=== PATIENT | female | born 1970 | race Caucasian/White ===

== ENCOUNTER 2019-10-05 14:09 | Emergency (ER) | payer OTHER, SELFPAY ==
--- NOTE | ~2019-10-05 | XR_ITS ---
EXAMINATION: XR chest 1V portable EXAM DATE: 10/05/2019 14:43 INDICATION: Shortness of breath and cough. TECHNIQUE: Portable AP frontal chest x-ray was obtained. Comparison is made to prior examination from 07/04/2018. FINDINGS: The lungs are clear. There are no pleural effusions. The cardiomediastinal silhouette is within normal limits. There is no pneumothorax suspected. The bones and soft tissues are unremarkab le. IMPRESSION: Unremarkable chest x-ray exam. Reviewed, dictated and finalized at location A.
[2019-10-05 14:15] VITALS: BP 128/87; PULSE 93; RESP 18; TEMP 36.9; O2SAT 100
[2019-10-05 14:20] VITALS: PULSE 95
[2019-10-05 14:33] LABS: Basophils Absolute Auto 0.1 K/mm3 (0.0-0.1); Basophils Percent Auto 0.5 % (0.2-1.2); Eosinophils Absolute Auto 0.1 K/mm3 (0-0.3); Eosinophils Percent Auto 0.5 % (0-4.4); Hemoglobin 15.4 g/dL (12.0-15.0); Immature Granulocyte Absolute 0.04 K/mm3 (0.00-0.031); Immature Granulocyte Percent A 0.3 % (0-0.5); Lymphocytes Percent Auto 31.7 % (18.3-44.2); Mean Corpuscular HGB Conc 33.5 g/dl (32-36); Mean Corpuscular Hemoglobin 31.4 pg (26-34); Mean Corpuscular Volume 93.9 fl (80-100); Mean Platelet Volume 10.9 fl (7.4-10.4); Monocytes Absolute Auto 0.8 K/mm3 (0.1-0.6); Monocytes Percent Auto 6.7 % (2.6-8.5); Neutrophils Absolute Auto 7.6 K/mm3 (1.3-6.7); Neutrophils Percent Auto 60.3 % (45.5-73.1); Platelet Count Result 421 k/mm3 (150-375); White Blood Count 12.6 K/mm3 (4.5-10.0)
[2019-10-05 14:54] LABS: Blood Urea Nitrogen 21 mg/dL (7-17); Calcium 9.7 mg/dL (8.4-10.2); Carbon Dioxide 30 mmol/L (22-30); Chloride 98 mmol/L (98-107); Estimated CRCL calculation 65 ml/min; Estimated Glomerular Filt Rate > 60; Glucose 98 mg/dL (65-105); Potassium 3.1 mmol/L (3.4-5.0); Sodium 137 mmol/L (137-145)
--- NOTE | 2019-10-05 14:59 | ED.SOB ---
HPI - SOB/Dyspnea General Chief Complaint: Shortness of Breath/Dyspnea Stated Complaint: fever/sob Time Seen by Provider: 10/05/19 14:28 History of Present Illness HPI Narrative: Patient is a 49-year-old female who presents ER with cold symptoms. Patient reports subjective fevers and chills over the last 2 to 3 days. She reports myalgias as well as abdominal discomfort with nausea. She reports shortness of breath but cannot actually tell me what makes her short of breath. She continues to smoke several cigarettes a day. No loss of consciousness or dizziness. 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 Related Data Home Medications Medication Instructions Recorded Confirmed cetirizine mg 10/05/19 ergocalciferol (vitamin D2) 10/05/19 10/05/19 hydrochlorothiazide 10/05/19 hydrocodone-acetaminophen 10/05/19 levothyroxine 10/05/19 ranitidine HCl 10/05/19 sertraline 50 mg PO DAILY 10/05/19 Allergies Allergy/AdvReac Type Severity Reaction Status Date / Time Penicillins Allergy Severe HIVES Verified 10/05/19 14:23 Review of Systems Review of Systems: All systems reviewed & are unremarkable except as noted in HPI and below Constitutional: Constitutional: Reports chills, Reports fatigue, Reports fever(s) and Reports weakness ENT: Denies nasal congestion and Reports sore throat Cardiovascular: Cardiovascular: Denies chest pain and Denies radiating jaw, neck or arm pain Respiratory: Respiratory: Denies chest congestion, Reports cough, Reports dyspnea and Denies wheezing Gastrointestinal: Gastrointestinal: Reports abdominal pain, Denies diarrhea, Reports nausea and Denies vomiting Genitourinary: Genitourinary: Denies nocturia and Denies dysuria Musculoskeletal: Musculoskeletal: Reports myalgias PMFSH Past Medical History Medical History (Updated 10/05/19 @ 17:37 by Sascha Redman MD) GERD (gastroesophageal reflux disease) Hypertension Hypothyroidism Surgical History Surgical History (Updated 10/05/19 @ 17:34 by Sascha Redman MD) No pertinent past surgical history Social History Social History (Updated 10/05/19 @ 17:34 by Sascha Redman MD) Smoking status: Light tobacco smoker Gender identity (if verbalized by the patient): Female Exam Narrative: Exam Narrative: GENERAL: Uncomfortable-appearing, well-nourished, and in no acute distress. HEAD: Normocephalic, atraumatic. ENT: Mucous membranes moist. CHEST: Clear to auscultation. No respiratory distress. HEART: Regular rate and rhythm. No murmur heard. Normal peripheral pulses. ABDOMEN: Soft, mild epigastric discomfort, no rebound or guarding, nondistended. EXTREMITIES: Normal range of motion. Normal strength, able to perform squats in the room. SKIN: Warm, dry, no rash. NEURO: Alert and oriented x3. PSYCH: Normal mood and affect. Course Course Emergency Course: Patient was able to perform jumping jacks and squats without hypoxia however that she was fatigued. Unremarkable lab work with exception of mild leukocytosis which is nonspecific. No pneumonia on chest x-ray. Patient without wheezing on lung exam. Liver function tests as well as lipase negative. Patient received some fentanyl for diffuse discomfort. Influenza negative. Patient is pulled her own IV is ready to leave. She has tolerated oral fluids. She is also been hydrated intravenously. Vital Signs Vital signs: Vital Signs Temperature 98.4 F 10/05/19 14:15 Pulse Rate 93 10/05/19 14:15 Respiratory Rate 18 10/05/19 14:15 Blood Pressure 128/87 10/05/19 14:15 Pulse Oximetry 100 10/05/19 14:15 Temperature 98.4 F 10/05/19 14:15 Pulse Rate 87 10/05/19 17:27 Respiratory Rate 16 10/05/19 17:27 Blood Pressure 101/64 10/05/19 17:27 Pulse Oximetry 97 10/05/19 17:27 MDM - SOB/Dyspnea Lab Data Result
[2019-10-05] MEDS: SODIUM CHLORIDE 0.9% IV 1,000 ML 999 ML IV CONT (15:51)
[2019-10-05 16:35] VITALS: BP 126/74; PULSE 70; RESP 22; O2SAT 99
[2019-10-05 16:35] LABS: Alanine Aminotransferase 15 U/L (4-35); Albumin Level 4.8 g/dL (3.5-5.1); Alkaline Phosphatase 89 U/L (38-126); Aspartate Amino Transferase 25 U/L (14-36); Bilirubin,Total 0.4 mg/dL (0.2-1.3); Lipase 214 U/L (23-300)
--- NOTE | 2019-10-05 16:36 | PC.NURSE ---
pt unable to provide ua at this time pt refused straight cath option. will try again shortly
[2019-10-05 17:27] VITALS: BP 101/64; PULSE 87; RESP 16; O2SAT 97
== END 2019-10-05 17:56 | disposition home or self-care (01) ==
PROVIDERS: Emergency Provider Emergency Medicine; PCP Nurse Practitioner
DX: B34.9 Viral infection, unspecified (principal); K21.9 Gastro-esophageal reflux disease without esophagitis; I10 Essential (primary) hypertension; E03.9 Hypothyroidism, unspecified
CPT/HCPCS: 36415; 71045; 80048; 80076; 83690; 85025; 87804; 96361; 96374; 99284; J3010; J7030

== ENCOUNTER 2022-03-01 08:05 | Emergency (ER) | payer OTHER, SELFPAY ==
[2022-03-01 08:13] VITALS: BP 137/101; PULSE 95; RESP 16; TEMP 37.3; O2SAT 100
[2022-03-01 08:14] VITALS: BP 137/101; PULSE 95; RESP 95; TEMP 37.3; O2SAT 100
--- NOTE | 2022-03-01 08:14 | ED.SKABFB ---
HPI - Skin/Abscess/Foreign Bdy General Chief complaint: Skin/Abscess/Foreign Body Stated complaint: Rash on Neck Time Seen by Provider: 03/01/22 08:15 Source: patient, RN notes reviewed and old records reviewed Mode of arrival: ambulatory Limitations: no limitations History of Present Illness HPI narrative: 52-year-old female presents to the [facility] with an inch she less than 1 cm area to anterior neck. No other symptoms. Has been scratching. Needs a work note. No surrounding erythema. Denies any fevers, upper respiratory infections. Related Data Home Medications Medication Instructions Recorded Confirmed cetirizine 10 mg tablet 10 mg PO DAILY 10/05/19 03/01/22 ergocalciferol (vitamin D2) 1,250 1,250 mcg PO WEEKLY 10/05/19 03/01/22 mcg (50,000 unit) capsule hydrochlorothiazide 25 mg tablet 25 mg PO DAILY 10/05/19 03/01/22 levothyroxine 50 mcg tablet 50 mcg PO DAILY 10/05/19 03/01/22 sertraline 50 mg tablet 50 mg PO DAILY 10/05/19 03/01/22 doxepin 10 mg capsule 10 mg PO DAILY 03/01/22 03/01/22 famotidine 20 mg tablet 20 mg PO DAILY 03/01/22 03/01/22 omeprazole 40 mg capsule,delayed 40 mg PO DAILY 03/01/22 03/01/22 release topiramate 200 mg tablet 200 mg PO DAILY 03/01/22 03/01/22 venlafaxine 37.5 mg 37.5 mg PO DAILY 03/01/22 03/01/22 capsule,extended release 24 hr Allergies Allergy/AdvReac Type Severity Reaction Status Date / Time Penicillins Allergy Severe HIVES Verified 03/01/22 08:13 Review of Systems Review of Systems: All systems reviewed & are unremarkable except as noted in HPI and below Constitutional: Constitutional: Reports no additional constitutional complaints, Denies chills and Denies fever(s) Eyes: Eyes: Reports no additional eye complaints ENT: Reports system reviewed and no additional complaints, except as documented Cardiovascular: Cardiovascular: Reports no additional cardiovascular complaints Respiratory: Respiratory: Reports no additional respiratory complaints Gastrointestinal: Gastrointestinal: Reports no additional gastrointestinal complaints Musculoskeletal: Musculoskeletal: Reports no additional musculoskeletal complaints Integumentary/Breasts: Skin/Breast: Reports as per HPI Neurologic: Reports system reviewed and no additional complaints, except as documented Psychiatric: Psychiatric: Reports no additional psychiatric complaints Allergic/Immunologic: Allergic/Immunologic: Reports no additional allergic/immunologic complaints PMFSH Past Medical History Medical History GERD (gastroesophageal reflux disease) Hypertension Hypothyroidism Surgical History Surgical History No pertinent past surgical history Social History Social History Smoking status: Light tobacco smoker Gender identity (if verbalized by the patient): Female Comments At the time of my signature, I reviewed and agree with the nursing past medical, surgical, social, and family history. There is no relevant family history pertinent to the patient complaint. Exam Const: General: healthy appearing, no acute distress and alert Nutritional Appearance: well nourished Orientation/consciousness: patient oriented x3 Limitations: no limitations HENMT: Head: normal to inspection Ears: external ears normal, TM's normal bilaterally and EAC's normal General nose exam: Normal external nose present Face and sinus: normal facial exam Mouth: Yes Normal oral and palatal mucosa present, Yes lip normal and Yes moist mucous membranes Eyes: General: appearance normal, both eyes and all related structures Pupils: Equal, round and reactive pupils present Neck: Neck: normal visual inspection, no lymphadenopathy and no meningeal signs Chest: Chest palpation & inspection: normal inspection of the chest Resp: Effort & Inspection: normal respirato
== END 2022-03-01 08:29 | disposition home or self-care (01) ==
PROVIDERS: Emergency Provider Nurse Practitioner; PCP Internal Medicine
DX: L50.9 Urticaria, unspecified (principal); S10.96XA Insect bite of unspecified part of neck, initial encounter; W57.XXXA Bitten or stung by nonvenomous insect and other nonvenomous arthropods, initial encounter; K21.9 Gastro-esophageal reflux disease without esophagitis; I10 Essential (primary) hypertension; E03.9 Hypothyroidism, unspecified; F17.200 Nicotine dependence, unspecified, uncomplicated
CPT/HCPCS: 99211; G0463

== ENCOUNTER 2022-04-06 01:28 | Day surgery (SDC) | payer OTHER, SELFPAY ==
[2022-03-23 09:50] VITALS: BMI 28.5
[2022-04-06 06:50] VITALS: BP 127/95; PULSE 95; RESP 18; TEMP 36.2; O2SAT 100; BMI 28.5
[2022-04-06] MEDS: LACTATED RINGERS 1,000 ML 150 ML IV CONT (07:00)
--- NOTE | 2022-04-06 07:27 | P.PNAN_ITS ---
Anes - Initial Pre Proc Eval Procedure: Operation Date: 04/06/22 08:00 Proposed Procedures p Screening Colonoscopy - Yonatan Connor MD Date/Time: 04/06/22 07:27 Surgeon: Yonatan Connor MD Pre Op Diagnosis: neoplasm screening Patient Data Age: 52 Gender: F Height: 1.6 m Weight: 73.2 kg Last Vital Signs Temp 36.2 C L 04/06/22 06:50 Pulse 95 04/06/22 06:50 Resp 18 04/06/22 06:50 BP 127/95 H 04/06/22 06:50 Pulse Ox 100 04/06/22 06:50 O2 Del Method Room Air 04/06/22 06:50 Allergies Allergy/AdvReac Type Severity Reaction Status Date / Time Penicillins Allergy Severe HIVES Verified 03/23/22 09:51 Home Medications Medication Instructions Recorded Confirmed Type ergocalciferol (vitamin D2) 1,250 1,250 mcg PO WEEKLY 10/05/19 03/23/22 History mcg (50,000 unit) capsule levothyroxine 50 mcg tablet 50 mcg PO DAILY 10/05/19 03/23/22 History doxepin 10 mg capsule 20 mg PO HS 03/01/22 03/23/22 History famotidine 20 mg tablet 20 mg PO DAILY 03/01/22 03/23/22 History omeprazole 40 mg capsule,delayed 40 mg PO DAILY 03/01/22 03/23/22 History release topiramate 200 mg tablet 200 mg PO DAILY 03/01/22 03/23/22 History venlafaxine 37.5 mg 37.5 mg PO DAILY 03/01/22 03/23/22 History capsule,extended release 24 hr acetaminophen 325 mg tablet 650 mg PO Q4H PRN Pain 03/23/22 03/23/22 History (Tylenol) docusate sodium 100 mg capsule 250 mg PO BID 03/23/22 03/23/22 History phentermine 37.5 mg capsule 37.5 mg PO DAILY 03/23/22 03/23/22 History Patient hx anesthesia problems: none Family hx anesthesia problems: none Results Review: All pre-operative results and documents have been reviewed as part of the pre- operative evaluation. [facility] Past Medical History Medical History GERD (gastroesophageal reflux disease) Hypertension Hypothyroidism Surgical History Surgical History No pertinent past surgical history Social History Social History Years smoked: 38 Smoking status: Current every day smoker Tobacco type: cigarettes and e-cigarettes/vaping Alcohol intake: former Substance use type: does not use Living arrangements: with family Gender identity (if verbalized by the patient): Female Spiritual care concerns: No Anes - Eval Final PreProcedure Day of Procedure 04/06/22 07:27 Patient weight: overweight Heart: regular rate and rhythm Lungs: clear to auscultation Airway: Mallampati scale class II Neurological: alert and oriented Last oral intake: >/= 8 hours ASA classification: III Emergent: no Anesthetic plan: proceed Anesthesia type and monitoring: general GIVS and standard monitoring Results Review: All pre-operative results and documents have been reviewed as part of the pre- operative evaluation. Informed Consent: The patient's anesthetic plan and its attendant risks and benefits were discussed with the patient/family/POA. Questions were solicited and answers provided to the satisfaction of the patient/family/POA.
--- NOTE | 2022-04-06 07:42 | PM.HPGS ---
History of Present Illness History of Present Illness Consent: Risks, benefits, and alternatives have been discussed and questions answered. Patient agrees to proceed with procedure. Chief complaint: neoplasm screening Narrative: Gloria Garcia is a 52 year old female here for first screening colonoscopy Review of Systems Constitutional: Constitutional: Denies headache(s) and Denies weakness Eyes: Eyes: Denies blurry vision ENT: Reports Normal hearing present, Denies headache(s) and Denies neck pain Cardiovascular: Cardiovascular: Denies chest pain and Denies dyspnea Respiratory: Respiratory: Denies dyspnea Gastrointestinal: Gastrointestinal: Reports no additional gastrointestinal complaints Genitourinary: Genitourinary: Denies dysuria Musculoskeletal: Musculoskeletal: Denies neck pain Integumentary/Breasts: Skin/Breast: Denies dry skin Neurologic: Reports Normal hearing present, Denies headache(s) and Denies weakness Psychiatric: Psychiatric: Denies anxiety Endocrine: Endocrine: Denies change in body appearance Hematologic/Lymphatic: Hematologic/Lymphatic: Denies easy bleeding Allergic/Immunologic: Allergic/Immunologic: Denies urticaria PMFSH Past Medical History Medical History (Updated 04/06/22 @ 07:43 by Yonatan Connor MD) Colon cancer screening GERD (gastroesophageal reflux disease) Hypertension Hypothyroidism Surgical History Surgical History No pertinent past surgical history Social History Social History Years smoked: 38 Smoking status: Current every day smoker Tobacco type: cigarettes and e-cigarettes/vaping Alcohol intake: former Substance use type: does not use Living arrangements: with family Gender identity (if verbalized by the patient): Female Spiritual care concerns: No Meds Home Medications and Allergies Home Medications Medication Instructions Recorded Confirmed Type ergocalciferol (vitamin D2) 1,250 1,250 mcg PO WEEKLY 10/05/19 03/23/22 History mcg (50,000 unit) capsule levothyroxine 50 mcg tablet 50 mcg PO DAILY 10/05/19 03/23/22 History doxepin 10 mg capsule 20 mg PO HS 03/01/22 03/23/22 History famotidine 20 mg tablet 20 mg PO DAILY 03/01/22 03/23/22 History omeprazole 40 mg capsule,delayed 40 mg PO DAILY 03/01/22 03/23/22 History release topiramate 200 mg tablet 200 mg PO DAILY 03/01/22 03/23/22 History venlafaxine 37.5 mg 37.5 mg PO DAILY 03/01/22 03/23/22 History capsule,extended release 24 hr acetaminophen 325 mg tablet 650 mg PO Q4H PRN Pain 03/23/22 03/23/22 History (Tylenol) docusate sodium 100 mg capsule 250 mg PO BID 03/23/22 03/23/22 History phentermine 37.5 mg capsule 37.5 mg PO DAILY 03/23/22 03/23/22 History Allergies Allergy/AdvReac Type Severity Reaction Status Date / Time Penicillins Allergy Severe HIVES Verified 03/23/22 09:51 Vital Signs Vital Signs - 24 hr 04/06/22 06:50 Temperature 97.2 F L Pulse Rate 95 Respiratory Rate 18 Blood Pressure 127/95 H Pulse Oximetry 100 Oxygen Delivery Room Air Exam Const: General: comfortable and no acute distress HENMT: Face/Nose/Sinus: Normal nares present Eyes: General: appearance normal, both eyes and all related structures Neck: Neck: no JVD Resp: Auscultation: clear to auscultation bilaterally Cardio: Rate: regular rate Rhythm: regular rhythm GI: Inspection: non-distended GI Palp: Yes Soft to palpation Skin: General skin exam: normal color Neuro: General: gait normal Speech: normal speech Extrem: General: normal to inspection Psych: Mental Status: mental status grossly normal Assessment and Plan Assessment and plan (1) Colon cancer screening: Code(s): Z12.11 - Encounter for screening for malignant neoplasm of colon Status: Acute Assessment and Plan: colonoscopy
[2022-04-06 08:05] VITALS: BP 108/77; PULSE 82; RESP 20; O2SAT 100
[2022-04-06 08:15] VITALS: BP 111/85; PULSE 80; RESP 20; O2SAT 100
[2022-04-06 08:25] VITALS: BP 119/60; PULSE 77; RESP 22; O2SAT 100
== END 2022-04-06 08:31 | disposition home or self-care (01) ==
PROVIDERS: PCP Internal Medicine; Visit Provider Internal Medicine Gastroenterology
PROC: 0DJD8ZZ Inspection of Lower Intestinal Tract, Via Natural or Artificial Opening Endoscopic (ICD-10-PCS; CPT 45378; principal; 2022-04-06 08:00)
DX: Z12.11 Encounter for screening for malignant neoplasm of colon (principal); D12.3 Benign neoplasm of transverse colon; K57.30 Diverticulosis of large intestine without perforation or abscess without bleeding; K21.9 Gastro-esophageal reflux disease without esophagitis; I10 Essential (primary) hypertension; E03.9 Hypothyroidism, unspecified; F17.210 Nicotine dependence, cigarettes, uncomplicated
CPT/HCPCS: 45380; 88305; J2704; J7120

== ENCOUNTER 2022-05-11 18:37 | Emergency (ER) | payer OTHER, SELFPAY ==
--- NOTE | ~2022-05-11 | XR_ITS ---
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 HAD COVID MID APRIL. Comparison: 10/05/2019. RESULT: Lines, tubes, and devices: None. Lungs and pleura: Clear. Cardiomediastinal silhouette: Stable. Other: No acute osseous or upper abdominal finding. IMPRESSION: No acute cardiopulmonary process. Reviewed, dictated and finalized at location K. WORKER
--- NOTE | 2022-05-11 18:39 | ECG_ITS ---
Measurements Intervals [place] Rate: 83 P: 4 DC: 143 QRS: -2 QRSD: 86 T: 29 QT: 353 QTc: 415 Interpretive Statements SINUS RHYTHM LOW QRS VOLTAGE IN PRECORDIAL LEADS NONSPECIFIC T-WAVE ABNORMALITY- INFERIOR LEADS BASELINE WANDER- V5-V6 BORDERLINE ECG NO PREVIOUS ECG AVAILABLE FOR COMPARISON Electronically Signed On 05-11-2022 20:07:49 ECHO VASC TECH by Keenan Ferrell D.O.
[2022-05-11 19:06] LABS: Basophils Percent Auto 0.5 % (0.2-1.2); Eosinophils Absolute Auto 0.1 K/mm3 (0-0.3); Eosinophils Percent Auto 1.2 % (0-4.4); Hematocrit 38.4 % (37.0-47.0); Hemoglobin 12.9 g/dL (12.0-15.0); Immature Granulocyte Absolute 0.02 K/mm3 (0.00-0.031); Immature Granulocyte Percent A 0.3 % (0-0.5); Lymphocytes Absolute Auto 1.95 K/mm3 (0.9-3.2); Lymphocytes Percent Auto 33.1 % (18.3-44.2); Mean Corpuscular HGB Conc 33.6 g/dl (32-36); Mean Corpuscular Hemoglobin 32.2 pg (26-34); Mean Corpuscular Volume 95.8 fl (80-100); Mean Platelet Volume 9.4 fl (7.4-10.4); Monocytes Absolute Auto 0.4 K/mm3 (0.1-0.6); Monocytes Percent Auto 5.9 % (2.6-8.5); Neutrophils Absolute Auto 3.5 K/mm3 (1.3-6.7); Platelet Count Result 351 k/mm3 (150-375); Red Blood Count 4.01 M/mm3 (4.2-5.4); Red Cell Distribution Width 12.6 % (11.5-14.5); White Blood Count 5.9 K/mm3 (4.5-10.0)
[2022-05-11 19:17] LABS: Alanine Aminotransferase 38 U/L (6-35); Albumin Level 4.4 g/dL (3.5-5.1); Alkaline Phosphatase 84 U/L (38-126); Anion Gap 10 mmol/L (8-16); Aspartate Amino Transferase 34 U/L (14-36); Bilirubin,Total 0.5 mg/dL (0.2-1.3); Blood Urea Nitrogen 13 mg/dL (7-17); Calcium 8.6 mg/dL (8.4-10.2); Carbon Dioxide 21 mmol/L (22-30); Chloride 109 mmol/L (98-107); Estimated Glomerular Filt Rate > 60; Glucose 112 mg/dL (65-110); Potassium 3.3 mmol/L (3.4-5.0); Sodium 140 mmol/L (137-145)
[2022-05-11 20:44] VITALS: BP 130/91; PULSE 83; RESP 14; TEMP 37.1; O2SAT 100
[2022-05-11 21:30] LABS: Influenza A QL RT-PCR Positive (Negative); Influenza B QL RT-PCR Negative (Negative); SARS-CoV-2 RNA PCR Negative
--- NOTE | 2022-05-11 23:16 | ED.GENADULT ---
HPI - General Adult General Chief complaint: Shortness of Breath/Dyspnea Stated complaint: non-productive cough - covid positive in April Time Seen by Provider: 05/11/22 23:01 History of Present Illness HPI narrative: 52-year-old female presented to the emergency department for evaluation of body aches and cough. Patient states in mid April she was diagnosed with COVID. Patient reported that she had follow-up with her primary care physician because symptoms have returned. At that time patient was started on clindamycin. Patient reports that the clindamycin did not help. Patient did test positive for influenza A today. Patient is also complaining of sores around her nares. Patient reports she has had this issue previously. Patient has had follow-up with ENT and was prescribed Bactroban. Patient has been taking the Bactroban as directed. Related Data Home Medications Medication Instructions Recorded Confirmed ergocalciferol (vitamin D2) 1,250 1,250 mcg PO WEEKLY 10/05/19 03/23/22 mcg (50,000 unit) capsule levothyroxine 50 mcg tablet 50 mcg PO DAILY 10/05/19 03/23/22 doxepin 10 mg capsule 20 mg PO HS 03/01/22 03/23/22 famotidine 20 mg tablet 20 mg PO DAILY 03/01/22 03/23/22 omeprazole 40 mg capsule,delayed 40 mg PO DAILY 03/01/22 03/23/22 release topiramate 200 mg tablet 200 mg PO DAILY 03/01/22 03/23/22 venlafaxine 37.5 mg 37.5 mg PO DAILY 03/01/22 03/23/22 capsule,extended release 24 hr acetaminophen 325 mg tablet 650 mg PO Q4H PRN Pain 03/23/22 03/23/22 (Tylenol) docusate sodium 100 mg capsule 250 mg PO BID 03/23/22 03/23/22 phentermine 37.5 mg capsule 37.5 mg PO DAILY 03/23/22 03/23/22 Allergies Allergy/AdvReac Type Severity Reaction Status Date / Time Penicillins Allergy Severe HIVES Verified 05/11/22 18:39 Review of Systems Review of Systems: CONSTITUTIONAL: See HPI EYES: Denies visual changes, redness, or discharge. ENT: Denies rhinorrhea, congestion, sore throat, or otalgia. CARDIOVASCULAR: Denies chest pain, palpitations, or edema. RESPIRATORY: See HPI GASTROINTESTINAL: Denies abdominal pain, nausea, vomiting, or diarrhea. GENITOURINARY: Denies dysuria or hematuria. SKIN: Denies rash or itching. MUSCULOSKELETAL: Denies back pain, joint pain, or myalgia. NEUROLOGIC: Denies headache, numbness, or weakness. [facility] Past Medical History Medical History (Updated 05/12/22 @ 00:01 by Hawk Danima) Colon cancer screening GERD (gastroesophageal reflux disease) Hypertension Hypothyroidism Surgical History Surgical History No pertinent past surgical history Social History Social History Years smoked: 38 Smoking status: Current every day smoker Tobacco type: cigarettes and e-cigarettes/vaping Alcohol intake: former Substance use type: does not use Gender identity (if verbalized by the patient): Female Spiritual care concerns: No Course Vital Signs Vital signs: Vital Signs Temperature 98.7 F 05/11/22 20:44 Pulse Rate 83 05/11/22 20:44 Respiratory Rate 14 05/11/22 20:44 Blood Pressure 130/91 H 05/11/22 20:44 Pulse Oximetry 100 05/11/22 20:44 Oxygen Delivery Room Air 05/11/22 20:44 Temperature 98.7 F 05/11/22 20:44 Pulse Rate 74 05/11/22 23:30 Respiratory Rate 18 05/11/22 23:30 Blood Pressure 130/91 H 05/11/22 20:44 Pulse Oximetry 100 05/11/22 20:44 Oxygen Delivery Room Air 05/11/22 20:44 Medical Decision Making Vital Signs Vital Signs: Vital Signs Temperature 98.7 F 05/11/22 20:44 Pulse Rate 83 05/11/22 20:44 Respiratory Rate 14 05/11/22 20:44 Blood Pressure 130/91 H 05/11/22 20:44 Pulse Oximetry 100 05/11/22 20:44 Oxygen Delivery Room Air 05/11/22 20:44 Temperature 98.7 F 05/11/22 20:44 Pulse Rate 74 05/11/22 23:30 Respiratory Rate 18 05/11/22 23:30 Blood Pressure 130/91 H
[2022-05-11 23:20] VITALS: PULSE 80; RESP 18
[2022-05-11] MEDS: ALBUTEROL SULFATE NEB 2.5 MG/3 ML INH 5 MG INHALATION (23:23)
[2022-05-11 23:30] VITALS: PULSE 74; RESP 18
== END 2022-05-11 23:42 | disposition home or self-care (01) ==
LOC: ANHED 23:33
PROVIDERS: Emergency Medicine; Emergency Provider Emergency Medicine; PCP Internal Medicine
DX: J10.1 Influenza due to other identified influenza virus with other respiratory manifestations (principal); Z20.822 Contact with and (suspected) exposure to COVID-19; F17.210 Nicotine dependence, cigarettes, uncomplicated; K21.9 Gastro-esophageal reflux disease without esophagitis; I10 Essential (primary) hypertension; E03.9 Hypothyroidism, unspecified
CPT/HCPCS: 36415; 71046; 80053; 85025; 87636; 93005; 94640; 99283

== ENCOUNTER 2022-06-29 07:50 | Outpatient (CLI) | payer OTHER, SELFPAY ==
--- NOTE | ~2022-06-29 | MM_ITS ---
EXAMINATION: MM screening juany BI w tari HISTORY: Screening mammogram TECHNIQUE: Craniocaudal and mediolateral oblique 3-D tomosynthesis images were obtained and synthetic 2-D images were generated. CAD analysis was submitted and interpreted. COMPARISON: 07/15/2014 right diagnostic mammogram and limited right breast ultrasound examination 10/01/2013 bilateral screening mammogram BREAST PARENCHYMAL COMPOSITION: The breasts are almost entirely fatty. FINDINGS: There is no evidence of suspicious mass, calcification, or architectural distortion to sugg est malignancy in either breast. There has been no suspicious interval change. IMPRESSION: 1. No mammographic evidence of malignancy. 2. Recommend routine screening mammography in one year. BI-RADS Category 1: Negative Reviewed, dictated and finalized at location A. F OPHTHALMIC TECHNICIAN
== END 2022-06-29 07:51 | disposition home or self-care (01) ==
PROVIDERS: PCP Internal Medicine; Visit Provider Obstetrics & Gynecology
DX: Z12.31 Encounter for screening mammogram for malignant neoplasm of breast (principal)
CPT/HCPCS: 77063; 77067

== ENCOUNTER 2022-08-08 07:43 | Outpatient (CLI) | payer OTHER, SELFPAY ==
--- NOTE | ~2022-08-08 | CT_ITS ---
EXAMINATION: CT soft tissue neck w con DATE: 08/08/2022 08:24 INDICATION: Sialoadenitis. TECHNIQUE: Computed tomography (CT) of the neck was performed with 75 mL Omnipaque-350 intravenous co ntrast. Automated exposure control and iterative reconstruction technique were employed. The dose-zurdo gth product was 511.60 mGy-cm. COMPARISON: Neck CT 01/30/2015 FINDINGS: There are changes of left hemithyroidectomy. There is 11 mm nodule right thyroid lobe, like ly not clinically significant. There are no pathologically enlarged lymph nodes. The parotid glands, submandibular glands, and sublingual glands are normal. No sialolith. There are multiple broken teeth on the left. IMPRESSION: 1. Normal major salivary glands. Reviewed, dictated and finalized at location A. [employer]
[2022-08-08 08:16] LABS: Estimated Glomerular Filt Rate > 60
== END 2022-08-08 07:44 | disposition home or self-care (01) ==
LOC: ANHIMG 07:46
PROVIDERS: PCP Internal Medicine; Visit Provider Otolaryngology
DX: K11.20 Sialoadenitis, unspecified (principal); H92.03 Otalgia, bilateral
CPT/HCPCS: 70491; Q9967

== ENCOUNTER 2023-03-15 16:17 | Outpatient (CLI) | payer OTHER, SELFPAY ==
--- NOTE | ~2023-03-15 | CT_ITS ---
EXAMINATION: CT abdomen pelvis wo con DATE: 03/15/2023 16:28 INDICATION: Left abdominal pain TECHNIQUE: Computed tomography (CT) of the abdomen and pelvis was performed without intravenous contr ast. The dose-length product (DLP) was 866.35 mGy-cm. Automated exposure control and iterative recons truction technique were employed. COMPARISON: None FINDINGS: The lung bases are clear. The heart size is normal. The liver, spleen, pancreas, gallbladde r, and adrenal glands are normal. There are two nonobstructing stones of the right kidney which measu re up to 3 mm. There are two nonobstructing stones of the left kidney which measure up to [address] ones are identified in the ureters or bladder. No hydronephrosis or hydroureter. No pathologically en larged abdominal or pelvic lymph nodes are identified. No free intraperitoneal gas or evidence of bow el obstruction. IMPRESSION: 1. No CT correlate for the patient's symptoms. 2. Bilateral nonobstructing nephrolithiasis. Reviewed, dictated and finalized at location F.
== END 2023-03-15 16:18 | disposition home or self-care (01) ==
LOC: ANHIMG 16:19
PROVIDERS: PCP Internal Medicine; Visit Provider Internal Medicine
DX: N20.0 Calculus of kidney (principal)
CPT/HCPCS: 74176

== ENCOUNTER 2023-03-17 20:56 | Emergency (ER) | payer OTHER, SELFPAY ==
--- NOTE | ~2023-03-17 | XR_ITS ---
EXAMINATION: XR chest 2V DATE: 03/17/2023 21:34 INDICATION: Chest and abdominal pain TECHNIQUE: PA and lateral views of the chest are obtained. COMPARISON: 05/11/2022 FINDINGS: The lungs are free of acute opacities. No pleural effusion or pneumothorax. The cardiomedia stinal silhouette is normal. There is mild thoracic spondylosis. Surgical clips are noted in the semaj on of the left thyroid. IMPRESSION: 1. No acute cardiopulmonary abnormality. Reviewed, dictated and finalized at location F.
--- NOTE | ~2023-03-17 | CT_ITS ---
EXAMINATION: CTA chest PE abdomen pel DATE: 03/18/2023 04:17 INDICATION: Chest pain. Abdominal pain. TECHNIQUE: Computed tomography angiography (CTA) of the chest was performed with 100 mL Omnipaque-350 intravenous contrast timed to evaluate the pulmonary arteries. Coronal maximum intensity projection 3D-reconstructions were created by the technologist. Computed tomography (CT) of the abdomen and pelv is was performed with intravenous contrast. Automated exposure control and iterative reconstruction t echnique were employed. The dose-length product was 1659.77 mGy-cm. COMPARISON: CT abdomen and pelvis 03/15/2023 FINDINGS: CTA chest: The lung volumes are small. There is mild emphysema. There is mild atelectasis bilaterally . No pleural effusion. There are changes of left hemithyroidectomy. The heart size is normal. No kathrin cardial effusion. There is no pulmonary embolus. There is mild thoracic spondylosis. CT abdomen and pelvis: There is diffuse hepatic steatosis. The gallbladder, spleen, pancreas, and adr enal glands are normal. There are 1 mm and 3 mm stones in right kidney. There is a 2 mm stone in left kidney. There are no dilated loops of bowel. The appendix is normal. There are no pathologically enl arged lymph nodes. There is no free intraperitoneal fluid. There is mild lumbar spondylosis. IMPRESSION: 1. No pulmonary embolus. 2. Mild emphysema. 3. Diffuse hepatic steatosis. 4. Bilateral nonobstructing kidney stones. Reviewed, dictated and finalized at location E.
--- NOTE | 2023-03-17 20:57 | ECG_ITS ---
Measurements Intervals [place] Rate: 65 P: 5 NC: 141 QRS: 5 QRSD: 86 T: 41 QT: 382 QTc: 399 Interpretive Statements SINUS RHYTHM LOW QRS VOLTAGE IN PRECORDIAL LEADS CANNOT RULE OUT SEPTAL INFARCT, AGE INDETERMINATE ABNORMAL ECG COMPARED TO ECG 05/11/2022 18:52:29 NO SIGNIFICANT CHANGES Electronically Signed On 03-17-2023 21:09:55 CDT by Keenan Ferrell D.O.
[2023-03-17 21:00] VITALS: BP 103/61; PULSE 77; RESP 19; TEMP 36.8; O2SAT 99
[2023-03-17] MEDS: ASPIRIN 81 MG CHEWABLE TABLET 324 MG PO (21:01)
[2023-03-17 21:16] LABS: Basophils Absolute Auto 0.1 K/mm3 (0.0-0.1); Basophils Percent Auto 0.5 % (0.2-1.2); Eosinophils Absolute Auto 0.2 K/mm3 (0-0.3); Eosinophils Percent Auto 1.6 % (0-4.4); Hematocrit 34.7 % (37.0-47.0); Hemoglobin 11.3 g/dL (12.0-15.0); Immature Granulocyte Absolute 0.02 K/mm3 (0.00-0.031); Immature Granulocyte Percent A 0.2 % (0-0.5); Lymphocytes Absolute Auto 3.89 K/mm3 (0.9-3.2); Lymphocytes Percent Auto 41.3 % (18.3-44.2); Mean Corpuscular HGB Conc 32.6 g/dl (32-36); Mean Corpuscular Hemoglobin 32.5 pg (26-34); Mean Corpuscular Volume 99.7 fl (80-100); Mean Platelet Volume 9.9 fl (7.4-10.4); Monocytes Absolute Auto 0.7 K/mm3 (0.1-0.6); Monocytes Percent Auto 7.8 % (2.6-8.5); Neutrophils Absolute Auto 4.6 K/mm3 (1.3-6.7); Neutrophils Percent Auto 48.6 % (45.5-73.1); Platelet Count Result 360 k/mm3 (150-375); Red Blood Count 3.48 M/mm3 (4.2-5.4); Red Cell Distribution Width 12.3 % (11.5-14.5); White Blood Count 9.4 K/mm3 (4.5-10.0)
[2023-03-17 21:27] LABS: INR 0.9; Prothrombin Time 12.5 Seconds (11.1-14.7)
[2023-03-17 21:28] LABS: Partial Thromboplastin Time 27.4 SECONDS (22.3-36.8)
[2023-03-17 21:29] LABS: Alanine Aminotransferase 34 U/L (6-35); Alkaline Phosphatase 91 U/L (38-126); Anion Gap 7 mmol/L (8-16); Aspartate Amino Transferase 31 U/L (14-36); Bilirubin,Total 0.4 mg/dL (0.2-1.3); Blood Urea Nitrogen 17 mg/dL (7-17); Calcium 9.1 mg/dL (8.4-10.2); Carbon Dioxide 26 mmol/L (22-30); Chloride 100 mmol/L (98-107); Estimated CRCL calculation 74 ml/min; Estimated Glomerular Filt Rate > 60; Glucose 99 mg/dL (65-110); Lipase 184 U/L (23-300); Sodium 133 mmol/L (137-145)
[2023-03-17 21:40] LABS: Troponin I < 0.012 ng/mL (0.000-0.034)
[2023-03-18 00:03] VITALS: BP 102/58; PULSE 66; RESP 18; O2SAT 100
[2023-03-18 00:49] LABS: Troponin I < 0.012 ng/mL (0.000-0.034)
[2023-03-18] MEDS: MORPHINE SULFATE (*CRX) 4 MG/ML INJ IV PUSH (03:31)
[2023-03-18 03:35] VITALS: BP 116/74; PULSE 70; RESP 15; O2SAT 100
--- NOTE | 2023-03-18 03:45 | ED.GENADULT ---
HPI - General Adult General Chief complaint: Chest Pain Stated complaint: chest pain Time Seen by Provider: 03/18/23 02:48 History of Present Illness HPI narrative: Patient 53-year-old female who presents the emergency department with chief complaint of chest pain and abdominal pain. Patient reports that she has been having abdominal discomfort for several days and actually saw her primary care provider and had an outpatient CT scan of her abdomen pelvis patient reports she was told that she had nonobstructing kidney stones and reports that she was referred to both urology and gastroenterology. Patient reports that she started having pain in her chest and the patient reports that she was concerned that she may have a pulmonary embolism as her son has had a PE. Related Data Home Medications Medication Instructions Recorded Confirmed ergocalciferol (vitamin D2) 1,250 1,250 mcg PO WEEKLY 10/05/19 07/26/22 mcg (50,000 unit) capsule levothyroxine 50 mcg tablet 50 mcg PO DAILY 10/05/19 07/26/22 doxepin 10 mg capsule 20 mg PO HS 03/01/22 07/26/22 famotidine 20 mg tablet 20 mg PO DAILY 03/01/22 07/26/22 omeprazole 40 mg capsule,delayed 40 mg PO DAILY 03/01/22 07/26/22 release venlafaxine 37.5 mg 37.5 mg PO DAILY 03/01/22 07/26/22 capsule,extended release 24 hr acetaminophen 325 mg tablet 650 mg PO Q4H PRN Pain 03/23/22 07/26/22 (Tylenol) docusate sodium 100 mg capsule 250 mg PO BID 03/23/22 07/26/22 Allergies Allergy/AdvReac Type Severity Reaction Status Date / Time Penicillins Allergy Severe HIVES Verified 07/26/22 15:38 Review of Systems Review of Systems: A 10 system review of systems was completed on the patient and is negative except for what is stated in the HPI. Nursing and ancillary documentation was reviewed. PMFSH Past Medical History Medical History Colon cancer screening GERD (gastroesophageal reflux disease) Hypertension Hypothyroidism Surgical History Surgical History No pertinent past surgical history Social History Social History Years smoked: 38 Smoking status: Current every day smoker Tobacco type: cigarettes and e-cigarettes/vaping Alcohol intake: former Substance use: never Substance use type: does not use Lack of Transportation: No Lack of Food: Often True Current Housing: I Have Housing Concerned About Future Housing: YES Difficulty Paying Gas/Electric Bills: No Difficulty Paying for Meds: No Currently Unemployed: No Education: Associate Degree Difficulty w/ Childcare or Family Care: No Living arrangements: with family Gender identity (if verbalized by the patient): Female Spiritual care concerns: No Exam Narrative: GENERAL: Well-appearing, well-nourished, and in no acute distress. HEAD: Normocephalic, atraumatic. EYES: PERRLA and EOMI. ENT: Nares clear, no rhinorrhea or epistaxis. Mucous membranes moist. NECK: Supple. CHEST: Clear to auscultation. No respiratory distress. Chest wall is tender to palpation HEART: Regular rate and rhythm. No murmur heard. Normal peripheral pulses. ABDOMEN: Soft, tenderness in the epigastric region, nondistended, normal active bowel sounds. EXTREMITIES: Normal range of motion. No edema. SKIN: Warm, dry, no rash. NEURO: No focal deficits. Alert and oriented x3. PSYCH: Normal mood and affect. Course Vital Signs Vital signs: Vital Signs Temperature 36.8 C 03/17/23 21:00 Pulse Rate 77 03/17/23 21:00 Respiratory Rate 19 03/17/23 21:00 Blood Pressure 103/61 03/17/23 21:00 Pulse Oximetry 99 03/17/23 21:00 Oxygen Delivery Room Air 03/17/23 21:00 Temperature 36.8 C 03/17/23 21:00 Pulse Rate 70 03/18/23 03:35 Respiratory Rate 15 03/18/23 03:35 Blood Pressure 116/74 03/18/23
[2023-03-18 04:16] LABS: Troponin I < 0.012 ng/mL (0.000-0.034)
[2023-03-18 06:34] VITALS: BP 114/62; PULSE 78; RESP 15; O2SAT 100
== END 2023-03-18 06:36 | disposition home or self-care (01) ==
PROVIDERS: General Practice; Emergency Provider Emergency Medicine; PCP Internal Medicine
DX: R07.89 Other chest pain (principal); R10.9 Unspecified abdominal pain; I10 Essential (primary) hypertension; E03.9 Hypothyroidism, unspecified; K21.9 Gastro-esophageal reflux disease without esophagitis; F17.290 Nicotine dependence, other tobacco product, uncomplicated; Z79.51 Long term (current) use of inhaled steroids; Z79.891 Long term (current) use of opiate analgesic
CPT/HCPCS: 36415; 71046; 71275; 74177; 80053; 83690; 84484; 85025; 85610; 85730; 93005; 96374; 99284; A9270; J2270; Q9967

== ENCOUNTER 2023-03-25 15:03 | Emergency (ER) | payer OTHER, SELFPAY ==
--- NOTE | ~2023-03-25 | CT_ITS ---
EXAMINATION: CT abdomen pelvis w con DATE: 03/25/2023 17:10 INDICATION: abdominal pain TECHNIQUE: Computed tomography (CT) of the abdomen and pelvis was performed with 100 mL Omnipaque-350 intravenous contrast. Automated exposure control and iterative reconstruction technique were employe d. The dose-length product was 983.97 mGy-cm. COMPARISON: 03/18/2023 and 03/15/2023. FINDINGS: Lower thorax: Unremarkable Liver: Diffusely low density. Biliary/Gallbladder: Gallbladder is normal. No bile duct dilation. Pancreas: No mass or duct dilation. Spleen: Normal. Adrenals:No mass. Kidneys: Punctate nonobstructing bilateral stones. No suspicious mass, obstructing stone, or hydronep hrosis. GI tract: No small or large bowel dilation. Normal appendix. Mesentery/Peritoneum: No ascites, mass, or free air. Retroperitoneum: No mass. Pelvis: Pelvic organs are within normal limits. Soft Tissues: Soft tissues and body wall unremarkable. Bones: No acute osseous finding. IMPRESSION: Hepatic steatosis. Nonobstructing bilateral nephrolithiasis. Reviewed, dictated and finalized at location K.
[2023-03-25 15:10] VITALS: BP 128/93; PULSE 75; RESP 18; TEMP 36.7; O2SAT 100
--- NOTE | 2023-03-25 15:31 | ED.ABDPAIN ---
HPI - Abdominal Pain General Chief Complaint: Abdominal Pain Stated Complaint: abd. pain Time Seen by Provider: 03/25/23 15:21 History of Present Illness HPI narrative: Patient is a 53-year-old female with history of HTN, hypothyroidism here with abdominal pain. patient states over the last 2 weeks she has had progressive abdominal pain. It initially started on the left lower side and then moved up to the left upper quadrant. She states that she initially saw her primary care doctor who ordered a CT scan and found non obstructing kidney stones. She was referred to GI and Urology which she has had difficulty following up with in scheduling appointments due to unavailability. Patient states that she was seen here recently because the pain had also included some chest pain. At that time she had a repeat CT scan and chest CT which were negative. She has had difficulty contacting her primary care doctor regarding the continued pain. Over the last 3-4 days she started noticing a swelling in her left upper quadrant which is very tender to touch. She notes that it feels similar to a broken rib. She denies any trauma. She denies any nausea or vomiting. She denies any current chest pain. She denies any cough. She notes that this abdominal pain does worsen with positional changes and coughing. She was using pain medications which were prescribed on her last ED visit which she ran out of this morning. She has had normal bowel movements, 3 formed stools yesterday. No blood in her stool. She denies any urinary symptoms. She did have a screening colonoscopy last year which had a couple polyps but was otherwise normal. Related Data Home Medications Medication Instructions Recorded Confirmed ergocalciferol (vitamin D2) 1,250 1,250 mcg PO WEEKLY 10/05/19 07/26/22 mcg (50,000 unit) capsule levothyroxine 50 mcg tablet 50 mcg PO DAILY 10/05/19 07/26/22 doxepin 10 mg capsule 20 mg PO HS 03/01/22 07/26/22 famotidine 20 mg tablet 20 mg PO DAILY 03/01/22 07/26/22 omeprazole 40 mg capsule,delayed 40 mg PO DAILY 03/01/22 07/26/22 release venlafaxine 37.5 mg 37.5 mg PO DAILY 03/01/22 07/26/22 capsule,extended release 24 hr acetaminophen 325 mg tablet 650 mg PO Q4H PRN Pain 03/23/22 07/26/22 (Tylenol) docusate sodium 100 mg capsule 250 mg PO BID 03/23/22 07/26/22 Allergies Allergy/AdvReac Type Severity Reaction Status Date / Time Penicillins Allergy Severe HIVES Verified 07/26/22 15:38 Review of Systems Review of Systems: CONSTITUTIONAL: Denies fever, chills, or sweats. EYES: Denies visual changes, redness, or discharge. ENT: Denies rhinorrhea, congestion, sore throat, or otalgia. CARDIOVASCULAR: Denies chest pain, palpitations, or edema. RESPIRATORY: Denies cough or dyspnea. GASTROINTESTINAL: abdominal pain, denies nausea, vomiting, or diarrhea. GENITOURINARY: Denies dysuria or hematuria. SKIN: Denies rash or itching. MUSCULOSKELETAL: Denies back pain, joint pain, or myalgia. NEUROLOGIC: Denies headache, numbness, or weakness. PSYCHIATRIC: Denies anxiety or depression. [facility] Past Medical History Medical History Colon cancer screening GERD (gastroesophageal reflux disease) Hypertension Hypothyroidism Surgical History Surgical History No pertinent past surgical history Social History Social History Years smoked: 38 Smoking status: Current every day smoker Tobacco type: cigarettes and e-cigarettes/vaping Alcohol intake: former Substance use: never Substance use type: does not use Lack of Transportation: No Lack of Food: Often True Current Housing: I Have Housing Concerned About Future Housing: YES Difficulty Paying Gas/Electric Bills: No Difficulty Paying for Meds: No Currently Unemployed: No Education: Associ
[2023-03-25 16:04] LABS: Basophils Absolute Auto 0.1 K/mm3 (0.0-0.1); Basophils Percent Auto 0.7 % (0.2-1.2); Eosinophils Absolute Auto 0.2 K/mm3 (0-0.3); Eosinophils Percent Auto 2.6 % (0-4.4); Hemoglobin 11.5 g/dL (12.0-15.0); Immature Granulocyte Absolute 0.02 K/mm3 (0.00-0.031); Immature Granulocyte Percent A 0.3 % (0-0.5); Lymphocytes Absolute Auto 3.07 K/mm3 (0.9-3.2); Lymphocytes Percent Auto 41.7 % (18.3-44.2); Mean Corpuscular HGB Conc 32.9 g/dl (32-36); Mean Corpuscular Hemoglobin 32.9 pg (26-34); Monocytes Absolute Auto 0.5 K/mm3 (0.1-0.6); Monocytes Percent Auto 6.5 % (2.6-8.5); Neutrophils Absolute Auto 3.6 K/mm3 (1.3-6.7); Neutrophils Percent Auto 48.2 % (45.5-73.1); Platelet Count Result 399 k/mm3 (150-375); Red Cell Distribution Width 12.4 % (11.5-14.5); White Blood Count 7.4 K/mm3 (4.5-10.0)
[2023-03-25] MEDS: ONDANSETRON INJ 4 MG/2 ML VIAL IV PUSH (16:04)
[2023-03-25] MEDS: diazePAM (*CRX) 5 MG TABLET PO (16:04)
[2023-03-25] MEDS: MORPHINE SULFATE (*CRX) 4 MG/ML INJ IV PUSH (16:04)
[2023-03-25 16:05] LABS: Appearance Urine Clear (Clear); Bilirubin Urine Negative (Negative); Blood Urine Negative (Negative); Color Urine Yellow (Yellow); Glucose Urine UA Negative (Negative); Ketones Urine Negative (Negative); Leukocyte Esterase Ur Negative LEU/UL (Negative); Nitrate Urine Negative (Negative); Protein Urine Negative (Negative); Specific Grav Ur 1.023 (1.001-1.035); Urobilinogen Urine 0.2 mg/dL (<2.0); pH Urine 5.5 (5.0-9.0)
[2023-03-25 16:11] LABS: Add Urine Microscopic? NO
[2023-03-25 16:13] LABS: Alanine Aminotransferase 31 U/L (6-35); Albumin Level 4.3 g/dL (3.5-5.1); Alkaline Phosphatase 74 U/L (38-126); Anion Gap 8 mmol/L (8-16); Aspartate Amino Transferase 27 U/L (14-36); Bilirubin,Total 0.5 mg/dL (0.2-1.3); Blood Urea Nitrogen 14 mg/dL (7-17); Carbon Dioxide 24 mmol/L (22-30); Chloride 107 mmol/L (98-107); Estimated CRCL calculation 66 ml/min; Estimated Glomerular Filt Rate > 60; Glucose 96 mg/dL (65-110); Lipase 60 U/L (23-300); Potassium 4.1 mmol/L (3.4-5.0); Sodium 139 mmol/L (137-145)
[2023-03-25 16:29] LABS: Pregnancy On Board Control Positive; Urine Pregnancy Test Negative
[2023-03-25 18:53] VITALS: PULSE 79; RESP 16; O2SAT 100
== END 2023-03-25 18:56 | disposition home or self-care (01) ==
PROVIDERS: Emergency Medicine; Emergency Provider Student in an Organized Health Care Education/Training Program; PCP Internal Medicine
DX: R10.12 Left upper quadrant pain (principal); I10 Essential (primary) hypertension; E03.9 Hypothyroidism, unspecified; K21.9 Gastro-esophageal reflux disease without esophagitis; F17.210 Nicotine dependence, cigarettes, uncomplicated; F17.290 Nicotine dependence, other tobacco product, uncomplicated; K76.0 Fatty (change of) liver, not elsewhere classified; N20.0 Calculus of kidney
CPT/HCPCS: 36415; 74177; 80053; 81003; 81025; 83690; 85025; 96374; 96375; 99284; A9270; J2270; J2405; Q9967

== ENCOUNTER 2023-05-17 08:07 | Outpatient (CLI) | payer OTHER, SELFPAY ==
--- NOTE | ~2023-05-17 | US_ITS ---
EXAMINATION: US abdomen complete DATE: 05/17/2023 09:28 INDICATION: R10.812 - Left upper quadrant abdominal tenderness TECHNIQUE: Multiple grayscale and Doppler ultrasound images of the abdomen were obtained. COMPARISON: None available. FINDINGS: Pancreas poorly visualized. The liver is normal with normal echogenicity and echotexture. N o surface nodularity. Normal hepatopetal flow in the main portal vein. The gallbladder is normal with no abnormal wall thickening, pericholecystic fluid or stones. The common bile duct measures 5 mm. Th ere was no sonographic [place] sign. The visualized portions of the aorta and inferior vena cava are n ormal. The right kidney measures 11.0 x 5.6 x 4.6 cm. The left kidney measures 10.8 x 5.6 x 4.9 cm. The kidn eys demonstrate normal parenchymal echogenicity. There is no hydronephrosis. The spleen is normal in appearance and measures 10.8 cm. IMPRESSION: Poor visualization of the pancreas in this examination. Otherwise normal abdominal ultrasound finding s. No sonographic abnormality in the left upper quadrant. Reviewed, dictated and finalized at location K. [employer] IMPRESSION: Poor visualization of the pancreas in this examination. Otherwise normal abdomi nal ultrasound findings. No sonographic abnormality in the left upper quadrant.
== END 2023-05-17 08:08 | disposition home or self-care (01) ==
PROVIDERS: PCP Internal Medicine; Visit Provider Internal Medicine Gastroenterology
DX: R10.812 Left upper quadrant abdominal tenderness (principal)
CPT/HCPCS: 76700

== ENCOUNTER 2023-05-30 01:47 | Day surgery (SDC) | payer OTHER, SELFPAY ==
[2023-05-15 09:05] VITALS: BMI 31.2
--- NOTE | 2023-05-29 09:50 | SUR.PREOP ---
Patient called regarding upcoming procedure. Reviewed preop instructions, appointment times, and procedure prep.
[2023-05-30 07:49] VITALS: BP 132/108; PULSE 91; RESP 20; TEMP 36.7; O2SAT 100; BMI 33.6
[2023-05-30] MEDS: LACTATED RINGERS 1,000 ML 150 ML IV CONT (07:58)
--- NOTE | 2023-05-30 08:40 | WPDANESEPPF ---
Anes - Initial Pre Proc Eval Procedure: Operation Date: 05/30/23 09:00 Proposed Procedures p Esophagogastroduodenoscopy - Yonatan Connor MD Date/Time: 05/30/23 08:40 Surgeon: Yonatan Connor MD Pre Op Diagnosis: Left upper quadrant abdominal tenderness Patient Data Age: 53 Gender: F Height: 1.57 m Weight: 83.4 kg Last Vital Signs Temp 98.0 F 05/30/23 07:49 Pulse 91 05/30/23 07:49 Resp 20 05/30/23 07:49 BP 132/108 H 05/30/23 07:49 Pulse Ox 100 05/30/23 07:49 O2 Del Method Room Air 05/30/23 07:49 Allergies Allergy/AdvReac Type Severity Reaction Status Date / Time Penicillins Allergy Severe HIVES Verified 05/30/23 07:48 Home Medications Medication Instructions Recorded Confirmed Type ergocalciferol (vitamin D2) 1,250 1,250 mcg PO WEEKLY 10/05/19 05/30/23 History mcg (50,000 unit) capsule levothyroxine 50 mcg tablet 50 mcg PO DAILY 10/05/19 05/30/23 History famotidine 20 mg tablet 20 mg PO BID 03/01/22 05/30/23 History omeprazole 40 mg capsule,delayed 40 mg PO BID 03/01/22 05/30/23 History release acetaminophen 325 mg tablet 500 mg PO Q4H PRN Pain 03/23/22 05/30/23 History (Tylenol) albuterol sulfate 90 mcg/actuation 1 inh inhalation QID PRN shortness 05/11/22 05/30/23 Rx aerosol inhaler of breath or wheezing #6.7 grams clonidine HCl 0.2 mg tablet 0.4 mg PO HS 05/15/23 05/30/23 History lisinopril 5 mg tablet 5 mg PO DAILY 05/15/23 05/30/23 History phentermine 37.5 mg capsule 37.5 mg PO DAILY 05/15/23 05/30/23 History Patient hx anesthesia problems: none Family hx anesthesia problems: none Results Review: All pre-operative results and documents have been reviewed as part of the pre-operative evaluation. [facility] Past Medical History Medical History (Updated 04/20/23 @ 16:01 by Yonatan Connor MD) Adenomatous colon polyp Colon cancer screening GERD (gastroesophageal reflux disease) Hypertension Hypothyroidism LUQ abdominal tenderness Surgical History Surgical History No pertinent past surgical history Social History Social History Years smoked: 38 Smoking status: Current every day smoker Tobacco type: e-cigarettes/vaping Alcohol intake: former Substance use: never Substance use type: does not use Lack of Transportation: No Lack of Food: Often True Current Housing: I Have Housing Concerned About Future Housing: YES Difficulty Paying Gas/Electric Bills: No Difficulty Paying for Meds: No Currently Unemployed: No Education: Associate Degree Difficulty w/ Childcare or Family Care: No Living arrangements: with family Gender identity (if verbalized by the patient): Female Spiritual care concerns: No Anes - Eval Final PreProcedure Day of Procedure 05/30/23 08:40 Patient weight: obese Heart: regular rate and rhythm Lungs: clear to auscultation Airway: Mallampati scale class II Neurological: alert and oriented Last oral intake: >/= 8 hours ASA classification: III Emergent: no Anesthetic plan: proceed Anesthesia type and monitoring: general GIVS and standard monitoring Results Review: All pre-operative results and documents have been reviewed as part of the pre-operative evaluation. Informed Consent: The patient's anesthetic plan and its attendant risks and benefits were discussed with the patient/family/POA. Questions were solicited and answers provided to the satisfaction of the patient/family/POA.
[2023-05-30] MEDS: MIDAZOLAM HCL (*CRX) 2 MG/2 ML VIAL IV PUSH (08:41)
--- NOTE | 2023-05-30 08:59 | PM.HPGS ---
History of Present Illness History of Present Illness Consent: Risks, benefits, and alternatives have been discussed and questions answered. Patient agrees to proceed with procedure. Chief complaint: Left upper quadrant abdominal tenderness Narrative: Gloria Garcia is a 53 year old female with luq pain, ultrasound negative, no recent egd. Review of Systems Constitutional: Constitutional: Denies headache(s) and Denies weakness Eyes: Eyes: Denies blurry vision ENT: Reports Normal hearing present, Denies headache(s) and Denies neck pain Cardiovascular: Cardiovascular: Denies chest pain and Denies dyspnea Respiratory: Respiratory: Denies dyspnea Gastrointestinal: Gastrointestinal: Reports no additional gastrointestinal complaints Genitourinary: Genitourinary: Denies dysuria Musculoskeletal: Musculoskeletal: Denies neck pain Integumentary/Breasts: Skin/Breast: Denies dry skin Neurologic: Reports Normal hearing present, Denies headache(s) and Denies weakness Psychiatric: Psychiatric: Denies anxiety Endocrine: Endocrine: Denies change in body appearance Hematologic/Lymphatic: Hematologic/Lymphatic: Denies easy bleeding Allergic/Immunologic: Allergic/Immunologic: Denies urticaria PMF Past Medical History Medical History (Updated 04/20/23 @ 16:01 by Yonatan Connor MD) Adenomatous colon polyp Colon cancer screening GERD (gastroesophageal reflux disease) Hypertension Hypothyroidism LUQ abdominal tenderness Surgical History Surgical History No pertinent past surgical history Social History Social History Years smoked: 38 Smoking status: Current every day smoker Tobacco type: e-cigarettes/vaping Alcohol intake: former Substance use: never Substance use type: does not use Lack of Transportation: No Lack of Food: Often True Current Housing: I Have Housing Concerned About Future Housing: YES Difficulty Paying Gas/Electric Bills: No Difficulty Paying for Meds: No Currently Unemployed: No Education: Associate Degree Difficulty w/ Childcare or Family Care: No Living arrangements: with family Gender identity (if verbalized by the patient): Female Spiritual care concerns: No Meds Home Medications and Allergies Home Medications Medication Instructions Recorded Confirmed Type ergocalciferol (vitamin D2) 1,250 1,250 mcg PO WEEKLY 10/05/19 05/30/23 History mcg (50,000 unit) capsule levothyroxine 50 mcg tablet 50 mcg PO DAILY 10/05/19 05/30/23 History famotidine 20 mg tablet 20 mg PO BID 03/01/22 05/30/23 History omeprazole 40 mg capsule,delayed 40 mg PO BID 03/01/22 05/30/23 History release acetaminophen 325 mg tablet 500 mg PO Q4H PRN Pain 03/23/22 05/30/23 History (Tylenol) albuterol sulfate 90 mcg/actuation 1 inh inhalation QID PRN shortness 05/11/22 05/30/23 Rx aerosol inhaler of breath or wheezing #6.7 grams clonidine HCl 0.2 mg tablet 0.4 mg PO HS 05/15/23 05/30/23 History lisinopril 5 mg tablet 5 mg PO DAILY 05/15/23 05/30/23 History phentermine 37.5 mg capsule 37.5 mg PO DAILY 05/15/23 05/30/23 History Allergies Allergy/AdvReac Type Severity Reaction Status Date / Time Penicillins Allergy Severe HIVES Verified 05/30/23 07:48 Vital Signs Vital Signs - 24 hr 05/30/23 07:49 Temperature 98.0 F Pulse Rate 91 Respiratory Rate 20 Blood Pressure 132/108 H Pulse Oximetry 100 Oxygen Delivery Room Air Exam Const: General: comfortable and no acute distress HENMT: Face/Nose/Sinus: Normal nares present Eyes: General: appearance normal, both eyes and all related structures Neck: Neck: no JVD Resp: Auscultation: clear to auscultation bilaterally Cardio: Rate: regular rate Rhythm: regular rhythm GI: Inspection: non-distended GI Palp: Yes Soft to palpation Skin: General skin exam: normal color N
[2023-05-30] MEDS: BENZOCAINE (*SP) 60 ML SPRAY CAN (HURRICAINE) 1 SPRAY MUCOUS MEM (09:06)
[2023-05-30 09:15] VITALS: BP 108/71; PULSE 71; RESP 18; O2SAT 100
[2023-05-30 09:25] VITALS: BP 116/79; PULSE 75; RESP 17; O2SAT 100
[2023-05-30 09:35] VITALS: BP 126/91; PULSE 81; RESP 26; O2SAT 100
== END 2023-05-30 09:44 | disposition home or self-care (01) ==
PROVIDERS: PCP Internal Medicine; Visit Provider Internal Medicine Gastroenterology
PROC: 0DJ08ZZ Inspection of Upper Intestinal Tract, Via Natural or Artificial Opening Endoscopic (ICD-10-PCS; CPT 43235; principal; 2023-05-30 09:00)
DX: R10.812 Left upper quadrant abdominal tenderness (principal); K21.9 Gastro-esophageal reflux disease without esophagitis; I10 Essential (primary) hypertension; E03.9 Hypothyroidism, unspecified; F17.290 Nicotine dependence, other tobacco product, uncomplicated; Z79.82 Long term (current) use of aspirin; Z79.899 Other long term (current) drug therapy
CPT/HCPCS: 43239; 88305; J2250; J2704; J7120